=== PATIENT | male | born 1955 | race Caucasian/White ===

== ENCOUNTER 2017-01-29 16:25 | Emergency (ER) | payer OTHER ==
[~2017-01-29] VITALS: Wt 65.0 kg
[2017-01-29] MEDS ORDERED: ALBUTEROL 0.083% (NEB) 2.5 MG/3 ML AMP NEB STA (16:27)
[2017-01-29] MEDS ORDERED: IPRATROPIUM (NEB) 0.5 MG/2.5 ML AMP NEB STA (16:27)
[2017-01-29] MEDS ORDERED: TIOT18CA INHALATION (16:29)
[2017-01-29] MEDS ORDERED: ALBU18HF INHALATION (16:29)
[2017-01-29] MEDS ORDERED: AZIT250T94 PO (16:29)
--- NOTE | 2017-01-29 16:44 | ERD ---
ER Documentation Chief Complaint Chief Complaint Cough HPI This is a 61-year-old male history of COPD and emphysema who is still smoking who presents with shortness of breath. The patient states that he has had shortness of breath for approximately 24 hours with dry cough, nonproductive. He states that he feels that his COPD is getting worse. He is not using oxygen at home. Before he called 911 he went to [employer] to get a sandwich because he states "I was hungry and when I come to this hospital the food is not very good so I wanted to have some food with me ". Patient denies any chest pain or pleuritic pain, no fevers or chills. ROS All systems reviewed and are negative except as per history of present illness. Medications Home Meds Active Scripts Prednisone* (Prednisone*) 20 Mg Tab, 40 MG PO DAILY for 4 Days, TAB Prov:OMAYRA SANDOVAL MD 01/29/17 Azithromycin* (Zithromax*) 250 Mg Tablet, 250 MG PO .ZPACK DIRECTED, #6 TAB TAKE 500 MG (2 TABS) THE FIRST DAY THEN 250 MG (1 TAB) DAYS 2-5 Prov:OMAYRA SANDOVAL MD 01/29/17 Tiotropium Shipman* (Spiriva*) 18 Mcg Cap.w.dev, 1 CAP INHALATION DAILY, #30 CAP Prov:OMAYRA SANDOVAL MD 01/29/17 Albuterol Sulfate* (Ventolin HFA*) 18 Gm Hfa.aer.ad, 2 PUFF INHALATION Q4H, #1 INHALER 1 Refill Prov:OMAYRA SANDOVAL MD 01/29/17 Allergies Allergies: Coded Allergies: No Known Allergy (Unverified , 01/29/17) NKA PER CHARGE MASTER ANALYSTMARNIE ZEPEDA PMhx/Soc COPD FmHx Family History: No diabetes Physical Exam Vitals Vital Signs Date Time Temp Pulse Resp B/P Pulse Ox O2 Delivery O2 Flow Rate FiO2 01/29/17 16:40 68 19 89 21 01/29/17 16:32 97.8 118 22 128/78 94 Physical Exam General: Disheveled, no acute distress, talking in full sentences, holding a [employer] bag of food, making jokes with the EMS team. Head: Normocephalic, atraumatic. Eyes: Pupils equally reactive, EOM intact ENT: Moist mucous membranes Neck: Supple, no lymphadenopathy Respiratory: Scant rhonchi at the bases bilaterally but good aeration, no increased work of breathing Cardiovascular: RRR, no murmurs, rubs, or gallops Abdominal: Soft, non-tender, non-distended, no peritoneal signs : Deferred MSK: No edema, no unilateral swelling, 5/5 strength Neurologic: Alert and oriented, moving all extremities, normal speech, no focal weakness, no cerebellar signs Skin: No rash Psych: Normal mood Results 24 hrs Current Medications Medications (Trade) Dose Ordered Sig/Roxann Route PRN Reason Start Time Stop Time Status Last Admin Dose Admin Albuterol (Proventil 0.083% (Neb)) 2.5 mg ONCE STAT NEB 01/29/17 16:27 01/29/17 16:28 DC 01/29/17 16:39 Ipratropium Shipman (Atrovent 0.02% (Neb)) 0.5 mg ONCE STAT NEB 01/29/17 16:27 01/29/17 16:28 DC 01/29/17 16:39 Prednisone (Prednisone) 60 mg ONCE ONCE PO 01/29/17 17:00 01/29/17 17:06 DC Procedures/MDM EKG, MONITORS, & DIAGNOSTIC IMAGING: Chest x-ray: I reviewed and interpreted a 1 view of the chest Mediastinum: No enlargement Cardiac silhouette: No cardiomegaly Airspace: Chronic changes consistent with emphysema and chronic lung disease but no focal infiltrates or pneumothorax Bones: No evidence of fracture MEDICAL DECISION MAKING: The patient presents with cough and congestion. He is still smoking. This is likely consistent with chronic COPD versus mild flare. No signs or symptoms concerning for pneumonia, pulmonary embolism or dissection or acute coronary syndrome. The patient is resting comfortably and had minimal symptoms to the point where he stopped to get food prior to arriving to the emergency department. He is not clinically in extremis. He is making jokes with the EMS team. However, given the patient's smoking history I believe a chest x-ray would be reasonable to rule out significant pneumonia. The patient will benefit from a single breathing treatment. He states that he is out of his medications including albuterol inhaler and Spiriva. He is asking for refills. I believe initiation of azithromycin for treatment of mild COPD flare would be reasonable. ER COURSE: The patient was given a breathing treatment. I would expect lower than normal oxygen saturations given his history of COPD and concurrent smoking. Anywhere from 88% to 92% would be appropriate for discharge. The patient continues to be well-appearing and is eating a big Mac and reading a book. He is resting comfortably. His saturation is 91% on room air. The patient is safe for discharge. Smoking Cessation: I had a greater than 3 minute conversation with the patient regarding smoking cessation. We discussed multiple alternatives. I kept the patient and/or family informed of laboratory and diagnostic imaging results throughout the emergency room course. DISPOSITION PLAN: We discussed follow up with the patient's primary care doctor within 24 to 48 hours as needed. We also discussed return to the emergency room for worsening symptoms or worsening condition. Outpatient referral: [None required] Discharge Medications: Spiriva, albuterol, azithromycin, prednisone Departure Diagnosis: Primary Impression: COPD exacerbation Condition: Stable Patient Instructions: Treatments for COPD, Copd Flare Referrals: [facility] CL[facility] YOU HAVE RECEIVED A MEDICAL SCREENING EXAM AND THE RESULTS INDICATE THAT YOU DO NOT HAVE A CONDITION THAT REQUIRES URGENT TREATMENT IN THE EMERGENCY DEPARTMENT. FURTHER EVALUATION AND TREATMENT OF YOUR CONDITION CAN WAIT UNTIL YOU ARE SEEN IN YOUR DOCTORS OFFICE WITHIN THE NEXT 1-2 DAYS. IT IS YOUR RESPONSIBILITY TO MAKE AN APPOINTMENT FOR FOLOW-UP CARE. IF YOU HAVE A PRIMARY DOCTOR --you should call your primary doctor and schedule an appointment IF YOU DO NOT HAVE A PRIMARY DOCTOR YOU CAN CALL OUR PHYSICIAN REFERRAL HOTLINE AT IF YOU CAN NOT AFFORD TO SEE A PHYSICIAN YOU CAN CHOSE FROM THE FOLLOWING [facility] CLINICS [facility] [address] [facility] [address] [facility] [address] [facility] [address] [facility] [address] [facility]. [facility]. [address] [facility]. [facility] YOU HAVE RECEIVED A MEDICAL SCREENING EXAM AND THE RESULTS INDICATE THAT YOU DO NOT HAVE A CONDITION THAT REQUIRES URGENT TREATMENT IN THE EMERGENCY DEPARTMENT. FURTHER EVALUATION AND TREATMENT OF YOUR CONDITION CAN WAIT UNTIL YOU ARE SEEN IN YOUR DOCTORS OFFICE WITHIN THE NEXT 1-2 DAYS. IT IS YOUR RESPONSIBILITY TO MAKE AN APPOINTMENT FOR FOLOW-UP CARE. IF YOU HAVE A PRIMARY DOCTOR --you should call your primary doctor and schedule and appointment IF YOU DO NOT HAVE A PRIMARY DOCTOR YOU CAN CALL OUR PHYSICIAN REFERRAL HOTLINE AT . IF YOU CAN NOT AFFORD TO SEE A PHYSICIAN YOU CAN CHOSE FROM THE FOLLOWING [facility] INSTITUTIONS: [facility] [address] [place] [address] [facility] [address] [place] [address] [facility] [address] [place] [address] Additional Instructions: STOP SMOKING. Call your primary care doctor TOMORROW for an appointment during the next 1 WEEK.Tell the service secretary that you were referred from this facility.See the doctor sooner or return here if your condition worsens before your appointment time. OMAYRA SANDOVAL MD Jan 29, 2017 16:44
[2017-01-29] MEDS ORDERED: PRED20TA PO (16:45)
[2017-01-29] MEDS ORDERED: predniSONE 20 MG TAB PO ONE (17:00)
[2017-01-29 18:08] VITALS: RESP 19
--- NOTE | 2017-01-29 18:14 | RADRPT ---
PROCEDURE: XR Chest. CLINICAL INDICATION: Asthma exacerbation. TECHNIQUE: Single frontal view of the chest. COMPARISON: None. FINDINGS: The cardiomediastinal silhouette is within normal limits. Hyperinflation compatible with COPD. Likel y interstitial lung changes. Consider CT correlation. The lungs are otherwise clear. No signs of ple ural fluid or pneumothorax are seen. The osseous structures and soft tissues are unremarkable. IMPRESSION: Hyperinflation of COPD with likely interstitial lung changes, and consider CT correlation. RPTAT: [facility] Physician Kyle Date Time Electronically viewed and signed by Physician Kyle on 01/29/2017 18:14 RS/
== END 2017-01-29 18:40 | disposition home or self-care (01) ==
LOC: E/R 16:25
DX: J44.1 Chronic obstructive pulmonary disease with (acute) exacerbation (principal)
CPT/HCPCS: 71010; 94664; J7512; Z7502; Z7610